=== PATIENT | female | born 1970 | race African-American/Black ===

== ENCOUNTER 2018-01-05 13:59 | Emergency (ER) | payer MEDICAID ==
[~2018-01-05] VITALS: Ht 160 cm; Wt 113.4 kg
[2018-01-05 14:28] LABS: Basophils # (auto) 0 uL; Basophils % (auto) 0.5 % (0.0-2.0); Eosinophils # (auto) 0.2 uL; Eosinophils % (auto) 2.1 % (0.0-7.0); Hematocrit 40.8 % (36.0-46.0); Hemoglobin 12.9 g/dL (12.2-16.2); Lymphocytes # (auto) 2.7 uL; Lymphocytes % (auto) 29.1 % (10.0-50.0); Mean Corpuscular Hemoglobin 27.4 pg (28.0-32.0); Mean Corpuscular Hgb Conc. 31.7 g/dL (32.0-36.0); Mean Corpuscular Volume 86.4 fL (80.0-100.0); Monocytes # (auto) 1.1 uL; Neutrophils # (auto) 5.3 uL; Neutrophils % (auto) 56.3 % (37.0-80.0); Nucleated Red Blood Cells % 0.1 %; Platelet Count (auto) 291 10^3/uL (140-450); Red Blood Cells 4.72 10^6/uL (4.0-5.20); Red Cell Distribution Width 15.6 % (11.8-14.3); White Blood Cell 9.5 10^3/uL (4.4-10.8)
[2018-01-05 14:37] LABS: Urine WBC None Seen /hpf (0 - 5)
[2018-01-05 14:52] LABS: Albumin 3.8 g/dL (3.4-5.0); BUN/Creatinine Ratio 14.9; Calcium 9.2 mg/dL (8.5-10.1); Potassium 4.2 mmol/L (3.5-5.1)
[2018-01-05 15:00] LABS: Urine Amorphous Crystal FEW /hpf (None Seen); Urine Bacteria NONE SEEN /hpf (None Seen); Urine Blood 1+ /uL (Negative)
[2018-01-05 15:24] LABS: Bilirubin, Total 0.1 mg/dL (0.2-1.0); Total Protein 7.7 g/dL (6.4-8.2)
[2018-01-05 20:31] VITALS: BP 132/85
[2018-01-05] MEDS ORDERED: KETOROLAC TROMETH 30 MG/ML 1ML VIAL IV ONE (20:45)
[2018-01-05 21:23] LABS: INR 0.91 (0.9-1.15); Partial Thromboplastin Time 28.8 sec (23.78-33.04); Prothrombin Time 9.8 sec (9.27-12.13)
== END 2018-01-05 22:13 | disposition home or self-care (01) ==
LOC: ER 13:59
DX: N12 Tubulo-interstitial nephritis, not specified as acute or chronic (principal); N20.0 Calculus of kidney; I10 Essential (primary) hypertension; Z90.710 Acquired absence of both cervix and uterus; Z88.5 Allergy status to narcotic agent; Z88.8 Allergy status to other drugs, medicaments and biological substances
CPT/HCPCS: 36415; 71045; 74176; 80053; 81001; 82150; 83690; 83735; 85025; 85610; 85730; 94761; 96374; 99284; J1885

== ENCOUNTER 2018-02-06 17:01 | Emergency (ER) | payer MEDICAID ==
[~2018-02-06] VITALS: Ht 160 cm; Wt 117.9 kg
[2018-02-06 17:17] VITALS: BP 145/84
[2018-02-06] MEDS ORDERED: methylPREDNISolone SOD SUCC 125 MG/2 ML VL IM ONE (22:15)
[2018-02-06 22:53] LABS: Urine Amorphous Crystal MANY /hpf (None Seen); Urine Bacteria FEW /hpf (None Seen); Urine Blood Negative /uL (Negative); Urine Specific Gravity 1.022 (1.001-1.035); Urine WBC 3 /hpf (0 - 5)
== END 2018-02-06 23:07 | disposition home or self-care (01) ==
LOC: ER 17:04
DX: S33.5XXA Sprain of ligaments of lumbar spine, initial encounter (principal); N20.0 Calculus of kidney; M62.830 Muscle spasm of back; I10 Essential (primary) hypertension; Z90.710 Acquired absence of both cervix and uterus; Z98.51 Tubal ligation status; Z88.6 Allergy status to analgesic agent; W18.11XA Fall from or off toilet without subsequent striking against object, initial encounter; Y93.E1 Activity, personal bathing and showering; Y92.89 Other specified places as the place of occurrence of the external cause; Y99.8 Other external cause status
CPT/HCPCS: 74176; 81001; 96372; 99284; J2930